=== PATIENT | female | born 1975 | race American Indian/Alaskan Native ===

== ENCOUNTER 2020-08-20 14:34 | Emergency (ER) | payer OTHER ==
[2020-08-20 15:21] VITALS: BP 110/69
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
== END 2020-08-20 19:24 | disposition home or self-care (01) ==
LOC: ED 14:34
DX: S39.012A Strain of muscle, fascia and tendon of lower back, initial encounter (principal); S46.819A Strain of other muscles, fascia and tendons at shoulder and upper arm level, unspecified arm, initial encounter; M62.838 Other muscle spasm; Z79.899 Other long term (current) drug therapy; V49.49XA Driver injured in collision with other motor vehicles in traffic accident, initial encounter; Y92.410 Unspecified street and highway as the place of occurrence of the external cause; Y93.89 Activity, other specified; Y99.8 Other external cause status
CPT/HCPCS: 99282